=== PATIENT | male | born 1970 | race Hispanic/Latino ===

== ENCOUNTER → 2018-02-18 | Outpatient (CLI) | payer MEDICARE | END | disposition home or self-care (01) | LOC: RAH 11:19 | PROVIDERS: ATTEND Family Medicine | DX: Z12.89 Encounter for screening for malignant neoplasm of other sites (principal); Z80.0 Family history of malignant neoplasm of digestive organs | CPT/HCPCS: 74150 ==

== ENCOUNTER → 2018-02-19 | Outpatient (CLI) | payer MEDICARE | END | disposition home or self-care (01) | LOC: RAH 08:28 | PROVIDERS: ATTEND Otolaryngology Plastic Surgery within the Head & Neck | DX: R13.10 Dysphagia, unspecified (principal) | CPT/HCPCS: 74220 ==